=== PATIENT | female | born 1955 | race Caucasian/White ===

== ENCOUNTER → 2022-03-11 | Outpatient (CLI) | payer MEDICARE ==
[~2022-03-11] MED LIST: AMLO1TAB24 PO; ATOR80TA59 PO; IRON27TA2 PO; LABE100T4 PO; LABE100T5 PO; NEXI20CA PO; PROB250C PO; VALS160T2 PO
== END ==
LOC: M PLARAD 14:56
PROVIDERS: ATTEND Specialist
DX: C34.31 Malignant neoplasm of lower lobe, right bronchus or lung (principal)
CPT/HCPCS: 78815; A9552

== ENCOUNTER → 2022-03-26 | Outpatient (POV) | payer MEDICARE ==
[~2022-03-26] VITALS: Ht 144.8 cm; Wt 45.9 kg
[2022-03-26 08:15] VITALS: BP 145/67
== END ==
LOC: M IRPOV 08:11
PROVIDERS: ATTEND Radiology Diagnostic Radiology
DX: Z45.2 Encounter for adjustment and management of vascular access device (principal); Z91.040 Latex allergy status

== ENCOUNTER 2022-04-14 14:31 | Emergency (ER) | payer MEDICARE ==
[~2022-04-14] VITALS: Ht 144.8 cm; Wt 45.9 kg
[~2022-04-14 14:31] MED LIST changes: +FOLI1TAB11 PO; +ONDA-84 PO; +PROC10TA5 PO
[2022-04-14] MEDS ORDERED: SODIUM CHLORIDE 0.9% INJ 10 ML SYR IV PRN (14:55)
[2022-04-14] MEDS ORDERED: ACETAMINOPHEN TAB 650MG DOSE (2X325MG) PO ONE (14:55)
[2022-04-14 15:48] LABS: BASO % 0.1 % (0.0-1.0); EOS % 0.4 % (0.0-3.0); HEMATOCRIT 33.4 % (36.0-47.0); HEMOGLOBIN 10.7 g/dl (12.0-15.5); LYMPH # 0.4 10^3/uL (1.5-5.0); LYMPH % 3.9 % (24.0-44.0); MEAN CORPUSCULAR HEMOGLOBIN 26.5 pg (27.0-33.0); MEAN CORPUSCULAR VOLUME 82.7 fl (80.0-96.0); MONO # 0.5 10^3/uL (0.0-0.8); MONO % 4.9 % (2.0-8.0); NEUTROPHILS # 8.8 10^3/uL (1.5-8.5); NEUTROPHILS % 90.1 % (36.0-66.0); PLATELET COUNT, AUTOMATED 201 10^3/uL (150-450); RED BLOOD COUNT 4.04 10^6/uL (4.00-5.40); WHITE BLOOD COUNT 9.8 10^3/uL (4.0-10.0)
[2022-04-14 16:17] LABS: ALBUMIN 3.6 GM/DL (3.2-5.2); ALT/SGPT 39 U/L (12-78); BILIRUBIN,DIRECT 0.2 MG/DL (0.0-0.2); BILIRUBIN,TOTAL 0.5 MG/DL (0.2-1.0); BLOOD UREA NITROGEN 18 MG/DL (7-18); CALCIUM LEVEL 9.2 MG/DL (8.8-10.2); CARBON DIOXIDE LEVEL 27 MEQ/L (21-32); CHLORIDE LEVEL 98 MEQ/L (98-107); CREATININE FOR GFR 0.78 MG/DL (0.55-1.30); GLOMERULAR FILTRATION RATE > 60.0 (>45); GLUCOSE, FASTING 98 MG/DL (70-100); POTASSIUM SERUM 3.5 MEQ/L (3.5-5.1); SODIUM LEVEL 133 MEQ/L (136-145); TOTAL PROTEIN 6.4 GM/DL (6.4-8.2)
[2022-04-14] MEDS ORDERED: cefTRIAXone SOD 1 GM in D5W MINI-BAG PLUS 50 ML IV ONE (17:25)
[2022-04-14] MEDS ORDERED: PYRI1TAB5 PO (17:27)
[2022-04-14] MEDS ORDERED: CEPH500C PO (17:27)
[2022-04-14 17:30] VITALS: BP 134/60
== END 2022-04-14 18:25 | disposition home or self-care (01) ==
LOC: M ED 14:31
DX: N30.90 Cystitis, unspecified without hematuria (principal); I25.10 Atherosclerotic heart disease of native coronary artery without angina pectoris; E78.5 Hyperlipidemia, unspecified; I10 Essential (primary) hypertension; C34.31 Malignant neoplasm of lower lobe, right bronchus or lung; C78.7 Secondary malignant neoplasm of liver and intrahepatic bile duct; C77.1 Secondary and unspecified malignant neoplasm of intrathoracic lymph nodes; Z93.3 Colostomy status; Z91.040 Latex allergy status; Z79.899 Other long term (current) drug therapy
CPT/HCPCS: 74176; 80048; 80076; 81001; 85025; 87040; 87088; 87186; 93041; 94760; 96365; 99285; J0696; J1642

== ENCOUNTER 2022-05-22 14:48 | Observation (INO) | payer MEDICARE ==
[~2022-05-22] VITALS: Ht 144.8 cm; Wt 44.5 kg
[~2022-05-22 14:48] MED LIST changes: +CEPH500C PO; +LIDO1CRE42 TOP; +PYRI1TAB5 PO
[2022-05-22 15:29] LABS: BASO % 0.2 % (0.0-1.0); EOS % 0.2 % (0.0-3.0); HEMATOCRIT 30.9 % (36.0-47.0); HEMOGLOBIN 9.9 g/dl (12.0-15.5); LYMPH # 0.6 10^3/uL (1.5-5.0); LYMPH % 10.6 % (24.0-44.0); MEAN CORPUSCULAR HEMOGLOBIN 28.1 pg (27.0-33.0); MEAN CORPUSCULAR VOLUME 87.8 fl (80.0-96.0); MONO # 0.3 10^3/uL (0.0-0.8); MONO % 5.3 % (2.0-8.0); NEUTROPHILS # 4.8 10^3/uL (1.5-8.5); NEUTROPHILS % 80.4 % (36.0-66.0); PLATELET COUNT, AUTOMATED 166 10^3/uL (150-450); RED BLOOD COUNT 3.52 10^6/uL (4.00-5.40)
[2022-05-22 15:59] LABS: CK-MB VALUE MASS < 1.0 NG/ML (<3.6); CPK CREATINE PHOSPHOKINASE 91 U/L (26-192)
[2022-05-22 16:04] LABS: ALBUMIN 3.1 GM/DL (3.2-5.2); BILIRUBIN,DIRECT 0.3 MG/DL (0.0-0.2); BILIRUBIN,TOTAL 0.4 MG/DL (0.2-1.0); CALCIUM LEVEL 8.8 MG/DL (8.8-10.2); CREATININE FOR GFR 4.52 MG/DL (0.55-1.30); GLOMERULAR FILTRATION RATE 10.3 (>45); POTASSIUM SERUM 3.1 MEQ/L (3.5-5.1); THYROID STIMULATING HORMONE 0.6 uIU/ML (0.358-3.740)
[2022-05-22] MEDS ORDERED: NS 1,000 ML IV ONE (16:25)
[2022-05-22] MEDS ORDERED: FOLI1TAB11 PO (17:19)
[2022-05-22] MEDS ORDERED: HOME MED LIST COMPLETE! XX SCH (17:25)
[2022-05-22 17:30] LABS: RSV AMPLIFICATION NEGATIVE (NEGATIVE)
[2022-05-22] MEDS ORDERED: PROCHLORPERAZINE 5MG TAB PO PRN (18:30)
[2022-05-22] MEDS ORDERED: ONDANSETRON 4MG TAB PO PRN (18:30)
[2022-05-22] MEDS ORDERED: EMLA CREAM 5GM TUBE (LIDOCAINE/PRILOCAINE) TOP SCH (18:30)
[2022-05-22] MEDS: NS 1,000 ML IV SCH (19:40)
[2022-05-22] MEDS ORDERED: POTASSIUM CHLORIDE 10% LIQ 20 MEQ/15 ML UDC PO ONE (20:00)
[2022-05-22] MEDS ORDERED: KCL 10MEQ/100ML SWI (KRUN) 10 MEQ in IV 1 EA IV ONE (20:00)
[2022-05-22 21:31] VITALS: BP 158/65
[2022-05-22 22:47] LABS: CREATININE,RANDOM URINE 48.1 MG/DL
[2022-05-22] MEDS: ATORVASTATIN 20 MG TAB PO SCH (22:47)
[2022-05-22] MEDS: amLODIPine 5 MG TAB PO SCH (22:48)
[2022-05-22] MEDS: HEPARIN SOD (PORCINE) 5000UNITS/ML 1ML VIAL/SYRINGE SQ SCH (22:49)
[2022-05-22] MEDS: LABETALOL 100MG TAB PO SCH (23:42)
[2022-05-23 02:00] VITALS: BP 97/41
[2022-05-23 02:05] VITALS: BP 105/55
[2022-05-23 06:00] VITALS: BP 116/51
[2022-05-23 06:08] LABS: HEMATOCRIT 25.3 % (36.0-47.0); HEMOGLOBIN 8.1 g/dl (12.0-15.5); MEAN CORPUSCULAR HEMOGLOBIN 28.5 pg (27.0-33.0); MEAN CORPUSCULAR VOLUME 89.1 fl (80.0-96.0); PLATELET COUNT, AUTOMATED 115 10^3/uL (150-450); RED BLOOD COUNT 2.84 10^6/uL (4.00-5.40); WHITE BLOOD COUNT 4.4 10^3/uL (4.0-10.0)
[2022-05-23] MEDS: NS 1,000 ML IV SCH ×3 (06:21→20:41)
[2022-05-23] MEDS: HEPARIN SOD (PORCINE) 5000UNITS/ML 1ML VIAL/SYRINGE SQ SCH ×4 (06:23→20:43)
[2022-05-23 06:45] LABS: ALBUMIN 2.4 GM/DL (3.2-5.2); BILIRUBIN,TOTAL 0.4 MG/DL (0.2-1.0); CALCIUM LEVEL 8.2 MG/DL (8.8-10.2); CREATININE FOR GFR 2.12 MG/DL (0.55-1.30); GLOMERULAR FILTRATION RATE 24.7 (>45); LYMPHOCYTES 9 % (16-44); MAGNESIUM LEVEL 2.5 MG/DL (1.8-2.4); MONOCYTES 3 % (0-5); POTASSIUM SERUM 3.1 MEQ/L (3.5-5.1); TOTAL PROTEIN 5.6 GM/DL (6.4-8.2)
[2022-05-23 06:47] LABS: ANISOCYTOSIS 2+; PLATELET ESTIMATE NORMAL (NORMAL)
[2022-05-23 07:06] LABS: NEUTROPHILS 87 % (28-66)
[2022-05-23] MEDS ORDERED: POTASSIUM CHLORIDE 10% LIQ 20 MEQ/15 ML UDC PO ONE (07:45)
[2022-05-23] MEDS: LABETALOL 100MG TAB PO SCH ×2 (07:52→20:43)
[2022-05-23] MEDS ORDERED: MAG SULF 1GM/100ML (MAG RUN) 1 GM in IV 1 EA IV ONE (08:00)
[2022-05-23] MEDS ORDERED: KCL 10MEQ/100ML SWI (KRUN) 10 MEQ in IV 1 EA IV ONE (08:00)
[2022-05-23] MEDS: FOLIC ACID 1 MG TAB PO SCH (08:13)
[2022-05-23] MEDS: FERROUS GLUCONATE 324 MG TAB PO SCH (08:13)
[2022-05-23] MEDS: PANTOPRAZOLE 20 MG TAB PO SCH (08:13)
[2022-05-23 10:00] VITALS: BP 120/47
[2022-05-23] MEDS: DRONABINOL 2.5MG CAP (MARINOL) PO SCH ×2 (11:21→17:39)
[2022-05-23 14:00] VITALS: BP 110/51
[2022-05-23] MEDS: ATORVASTATIN 20 MG TAB PO SCH (20:40)
[2022-05-23] MEDS: amLODIPine 5 MG TAB PO SCH (20:43)
[2022-05-23] MEDS ORDERED: RAMELTEON 8 MG TAB (ROZEREM) PO ONE (21:00)
[2022-05-23 22:00] VITALS: BP 135/62
[2022-05-23] MEDS ORDERED: ACETAMINOPHEN TAB 650MG DOSE (2X325MG) PO PRN (22:15)
[2022-05-24 05:00] VITALS: BP 132/60
[2022-05-24] MEDS: HEPARIN SOD (PORCINE) 5000UNITS/ML 1ML VIAL/SYRINGE SQ SCH (05:25)
[2022-05-24 06:00] LABS: BASO % 0.4 % (0.0-1.0); EOS % 0.4 % (0.0-3.0); HEMATOCRIT 28.3 % (36.0-47.0); HEMOGLOBIN 8.7 g/dl (12.0-15.5); LYMPH # 0.5 10^3/uL (1.5-5.0); LYMPH % 10.4 % (24.0-44.0); MEAN CORPUSCULAR HEMOGLOBIN 27.6 pg (27.0-33.0); MEAN CORPUSCULAR HGB CONC 30.7 g/dl (32.0-36.5); MEAN CORPUSCULAR VOLUME 89.8 fl (80.0-96.0); MONO # 0.3 10^3/uL (0.0-0.8); MONO % 6.1 % (2.0-8.0); NEUTROPHILS # 3.9 10^3/uL (1.5-8.5); NEUTROPHILS % 80.8 % (36.0-66.0); PLATELET COUNT, AUTOMATED 103 10^3/uL (150-450); RED BLOOD COUNT 3.15 10^6/uL (4.00-5.40); WHITE BLOOD COUNT 4.8 10^3/uL (4.0-10.0)
[2022-05-24 06:27] LABS: ALBUMIN 2.4 GM/DL (3.2-5.2); BILIRUBIN,TOTAL 0.4 MG/DL (0.2-1.0); CALCIUM LEVEL 8.4 MG/DL (8.8-10.2); CREATININE FOR GFR 1.3 MG/DL (0.55-1.30); GLOMERULAR FILTRATION RATE 43.4 (>45); POTASSIUM SERUM 3.9 MEQ/L (3.5-5.1); TOTAL PROTEIN 5.7 GM/DL (6.4-8.2)
[2022-05-24] MEDS ORDERED: PREVNAR 13 VACCINE SYRINGE IM.IMMUN ONE (09:00)
[2022-05-24] MEDS: FERROUS GLUCONATE 324 MG TAB PO SCH (09:24)
[2022-05-24] MEDS: FOLIC ACID 1 MG TAB PO SCH (09:24)
[2022-05-24] MEDS: PANTOPRAZOLE 20 MG TAB PO SCH (09:24)
[2022-05-24 09:25] VITALS: BP 132/60
[2022-05-24] MEDS: LABETALOL 100MG TAB PO SCH (09:25)
[2022-05-24] MEDS ORDERED: ISOVUE-370 76% 100ML VIAL As Ordered ONE (09:35)
[2022-05-24] MEDS: DRONABINOL 2.5MG CAP (MARINOL) PO SCH (11:53)
[2022-05-24 12:19] LABS: APPEARANCE, URINE TURBID (CLEAR); BACTERIA, URINE AUTO 2+ (NEGATIVE); BILIRUBIN, URINE AUTO NEGATIVE (NEGATIVE); BLOOD, URINE BLOOD 1+ (NEGATIVE); COLOR, URINE AMBER (YELLOW); GLUCOSE, URINE (UA) AUTO NEGATIVE (NEGATIVE); KETONE, URINE AUTO NEGATIVE (NEGATIVE); LEUKOCYTE ESTERASE, URINE AUTO 3+ (NEGATIVE); NITRITE, URINE AUTO NEGATIVE (NEGATIVE); PROTEIN, URINE AUTO 1+ mg/dL (NEGATIVE); RBC, URINE AUTO 21 /HPF (0-3); SPECIFIC GRAVITY URINE AUTO 1.024 (1.002-1.035); SQUAMOUS EPITHELIAL CELL UR AU 2 /HPF (0-6); UROBILINOGEN, URINE AUTO 0.2 mg/dL (0.0-2.0); WBC, URINE AUTO TNTC /HPF (0-3)
[2022-05-24] MEDS ORDERED: CEPH500C PO (12:55)
[2022-05-24] MEDS: NS 1,000 ML IV SCH (13:26)
== END 2022-05-24 14:08 | disposition home or self-care (01) ==
LOC: M ED 14:48 → M ED INP 17:30 → ENRESERV 19:57 → M MSPAV 21:25
PROVIDERS: ADMIT Internal Medicine; ATTEND Internal Medicine
DX: N17.9 Acute kidney failure, unspecified (principal); R63.0 Anorexia; I95.9 Hypotension, unspecified; D64.9 Anemia, unspecified; K21.9 Gastro-esophageal reflux disease without esophagitis; R11.0 Nausea; T45.1X5A Adverse effect of antineoplastic and immunosuppressive drugs, initial encounter; T82.848A Pain due to vascular prosthetic devices, implants and grafts, initial encounter; G89.29 Other chronic pain; Y74.2 Prosthetic and other implants, materials and accessory general hospital and personal-use devices associated with adverse incidents; Z90.49 Acquired absence of other specified parts of digestive tract; Z93.3 Colostomy status; Z85.038 Personal history of other malignant neoplasm of large intestine; I25.10 Atherosclerotic heart disease of native coronary artery without angina pectoris; C34.90 Malignant neoplasm of unspecified part of unspecified bronchus or lung; C78.7 Secondary malignant neoplasm of liver and intrahepatic bile duct; R53.1 Weakness; E87.6 Hypokalemia; R74.01 Elevation of levels of liver transaminase levels; E87.1 Hypo-osmolality and hyponatremia; R93.422 Abnormal radiologic findings on diagnostic imaging of left kidney; I12.9 Hypertensive chronic kidney disease with stage 1 through stage 4 chronic kidney disease, or unspecified chronic kidney disease; R21 Rash and other nonspecific skin eruption; K52.9 Noninfective gastroenteritis and colitis, unspecified; N30.90 Cystitis, unspecified without hematuria; Z79.899 Other long term (current) drug therapy; Z79.2 Long term (current) use of antibiotics; Z91.040 Latex allergy status; Z87.891 Personal history of nicotine dependence; Z23 Encounter for immunization
CPT/HCPCS: 36415; 74178; 76775; 80048; 80053; 80076; 81001; 82270; 82550; 82553; 82570; 83735; 83930; 83935; 84300; 84443; 84484; 85025; 87088; 87186; 87631; 90670; 93005; 96361; 96365; 96372; 97162; 97165; 97530; 97535; 99285; G0009; G0378; J1644; Q9967

== ENCOUNTER → 2022-06-11 | Outpatient (CLI) | payer MEDICARE ==
[~2022-06-11] MED LIST changes: +POTA1TAB14 PO; +PROHANCE 279.3MG/ML 5ML VIAL As Ordered ONE; +QC A650T3 PO
== END ==
LOC: M RAD 12:16
PROVIDERS: ATTEND Specialist
DX: C34.31 Malignant neoplasm of lower lobe, right bronchus or lung (principal); R90.82 White matter disease, unspecified
CPT/HCPCS: 70553; A9576

== ENCOUNTER → 2022-06-18 | Outpatient (CLI) | payer MEDICARE ==
[~2022-06-18] VITALS: Ht 152.4 cm; Wt 43.5 kg
[~2022-06-18] MED LIST changes: -LABE100T4 PO; -LABE100T5 PO; +LABE100T6 PO; +LABE100T71 PO; -PROHANCE 279.3MG/ML 5ML VIAL As Ordered ONE
[2022-06-18 13:00] VITALS: BP 132/60
== END ==
LOC: M PAL 12:44
PROVIDERS: ATTEND Nurse Practitioner Adult Health
DX: C34.31 Malignant neoplasm of lower lobe, right bronchus or lung (principal); C78.7 Secondary malignant neoplasm of liver and intrahepatic bile duct; Z85.038 Personal history of other malignant neoplasm of large intestine; Z93.3 Colostomy status; I25.10 Atherosclerotic heart disease of native coronary artery without angina pectoris; I10 Essential (primary) hypertension; Z91.040 Latex allergy status; Z79.899 Other long term (current) drug therapy; Z66 Do not resuscitate; Z80.3 Family history of malignant neoplasm of breast; Z80.0 Family history of malignant neoplasm of digestive organs; Z51.5 Encounter for palliative care